=== PATIENT | female | born 1955 | race Caucasian/White ===

== ENCOUNTER 2021-10-23 12:46 | Day surgery (SDC) | payer OTHER ==
[~2021-10-23] VITALS: Ht 162.6 cm; Wt 62.3 kg
[~2021-10-23 12:46] MED LIST: ASCO500 PO; Aspirin EC81 MG PO; CHOL10002 PO; FISH OIL 1,0001 EAC1 PO; GLUC500 PO; Multivitamin1 EAC1 PO; OCCUVITE PO; Pravachol20 MG PO
[2021-10-23] MEDS ORDERED: HYDCHL12.5 (14:09)
--- NOTE | 2021-10-23 14:41 | NUR ---
10/23/21 1441 Lora Prather THREE ATTEMPTS AT IV. FIRST ATTEMPT AT IV BY MA IN LEFT HAND MISSED. SECOND ATTEMPT AT IV IN LEFT AC BY RN MISSED THIRD ATTEMPT BY RN IN LEFT HAND SUCCESSFUL.
== END 2021-10-23 16:38 | disposition home or self-care (01) ==
LOC: ORSCSDS 12:46
PROVIDERS: Student in an Organized Health Care Education/Training Program
PROC: 0DBH8ZX Excision of Cecum, Via Natural or Artificial Opening Endoscopic, Diagnostic (ICD-10-PCS; principal; 2021-10-23 14:00)
PROC: 0DBK8ZX Excision of Ascending Colon, Via Natural or Artificial Opening Endoscopic, Diagnostic (ICD-10-PCS; principal; 2021-10-23 14:00)
PROC: 0DBL8ZX Excision of Transverse Colon, Via Natural or Artificial Opening Endoscopic, Diagnostic (ICD-10-PCS; principal; 2021-10-23 14:00)
PROC: 0DBN8ZX Excision of Sigmoid Colon, Via Natural or Artificial Opening Endoscopic, Diagnostic (ICD-10-PCS; principal; 2021-10-23 14:00)
DX: Z12.11 Encounter for screening for malignant neoplasm of colon (principal); Z86.010 Personal history of colon polyps; D12.2 Benign neoplasm of ascending colon; D12.0 Benign neoplasm of cecum; D12.3 Benign neoplasm of transverse colon; K63.5 Polyp of colon
CPT/HCPCS: 88305; J2704; J7120

== ENCOUNTER 2023-10-02 08:05 | Day surgery (SDC) | payer OTHER ==
[~2023-10-02] VITALS: Ht 162.6 cm; Wt 64.6 kg
[2023-10-02] VITALS (19 sets, daily range): BP systolic 119–166; BP diastolic 61–114
[~2023-10-02 08:05] MED LIST changes: +HYDCHL12.5; +LOSARTAN-HCTZ1 EACH PO; +Lactated Ringer's 1,000 ML IV SCH; +propofoL 40 ML IV ONE
--- NOTE | 2023-10-02 08:52 | NUR ---
PRE PROCEDURE NOTE PT A&OX4, BREATHING RA, CALM, NO COMPLAINTS. Ambulatory in Day Surgery Patient confirms NPO status and agrees with scheduled surgery. Pre-Op teaching done. Pt verbalizes understanding. Patient States Post-Procedure ride home has been arranged.
--- NOTE | 2023-10-02 09:14 | NUR ---
10/02/23 0914 Ladonna Dodge HISTORY, CHART, MEDICATIONS AND ALLERGIES REVIEWED BEFORE START OF PROCEDURE. PATIENT CONFIRMS NPO STATUS AND AGREES WITH SCHEDULED PROCEDURE. 3-LEAD EKG REVIEWED WITH PHYSICIAN PRIOR TO START OF PROCEDURE. MONITOR INTACT WITH CONTINUOUS PULSE OXIMETRY,CAPNOGRAPHY, 3-LEAD EKG, INTERMITTENT BP. SUPPLEMENTAL O2 TO BE TITRATED THROUGHOUT PROCEDURE TO MAINTAIN O2 SATURATION ABOVE 90%. PATIENT DETERMINED TO BE ASA APPROPRIATE FOR PROPOFOL SEDATION PRIOR TO START OF PROCEDURE BY DR. GARCIA
--- NOTE | 2023-10-02 10:30 | NUR ---
Patient up to Ambulate independently. Gait steady. Discharge instructions reviewed with patient. Patient verbalizes understanding. Copy given to patient to take home, WELL . Patient States Post-Procedure ride home has been arranged. Discharged via wheelchair to private car for ride home.
== END 2023-10-02 10:30 | disposition home or self-care (01) ==
LOC: ORSCMMR 08:05 → ORD 09:00 → ORSCMMR 09:00
PROVIDERS: Internal Medicine Gastroenterology
PROC: 0DBK8ZX Excision of Ascending Colon, Via Natural or Artificial Opening Endoscopic, Diagnostic (ICD-10-PCS; principal; 2023-10-02 09:00)
PROC: 0DBM8ZX Excision of Descending Colon, Via Natural or Artificial Opening Endoscopic, Diagnostic (ICD-10-PCS; principal; 2023-10-02 09:00)
PROC: 0DBH8ZX Excision of Cecum, Via Natural or Artificial Opening Endoscopic, Diagnostic (ICD-10-PCS; principal; 2023-10-02 09:00)
DX: Z86.010 Personal history of colon polyps (principal); D12.2 Benign neoplasm of ascending colon; K63.5 Polyp of colon; K57.30 Diverticulosis of large intestine without perforation or abscess without bleeding; K64.8 Other hemorrhoids; Z80.0 Family history of malignant neoplasm of digestive organs; I10 Essential (primary) hypertension; E78.00 Pure hypercholesterolemia, unspecified; Z85.3 Personal history of malignant neoplasm of breast; Z79.899 Other long term (current) drug therapy
CPT/HCPCS: 88305; J2704; J7120